=== PATIENT | female | born 1960 | race Caucasian/White ===

== ENCOUNTER 2025-02-11 11:00 | Outpatient (RCR) | payer MEDICAID, SELFPAY | END 2025-03-22 13:37 | disposition home or self-care (01) | LOC: HO.OT 11:00 | PROVIDERS: PCP Physician Assistant Medical; Visit Provider Physician Assistant Surgical | DX: M20.011 Mallet finger of right finger(s) (principal) | CPT/HCPCS: 29130; 97165; 97535; 97760 ==